=== PATIENT | male | born 1950 | race Two or more races ===

== ENCOUNTER 2016-08-06 05:20 | Inpatient (IN) | payer OTHER ==
[2016-08-05 10:15] VITALS: Ht 167.6 cm; Wt 106.6 kg
[2016-08-06] VITALS (29 sets, daily range): BP systolic 95–167; BP diastolic 56–81; PULSE 77–124; RESP 12–21
[~2016-08-06] VITALS: Ht 167.6 cm; Wt 106.6 kg
[2016-08-06] MEDS ORDERED: CLINDAMYCIN 600 MG/D5W (PMX) 50 ML IVPB SCH (07:00)
[2016-08-06] MEDS ORDERED: POLYMYXIN/BACITRACIN 1L IRRIG ONE (07:05)
[2016-08-06] MEDS ORDERED: ASPI-664 PO (07:17)
[2016-08-06] MEDS ORDERED: MELO-110 PO (07:17)
[2016-08-06] MEDS ORDERED: ATOR40TA68 PO (07:17)
[2016-08-06] MEDS ORDERED: AMLO1TAB86 PO (07:17)
[2016-08-06] MEDS ORDERED: RANI150T5 PO (07:17)
[2016-08-06] MEDS ORDERED: CLON-379 PO (07:17)
[2016-08-06] MEDS ORDERED: LORA10TA3 PO (07:17)
--- NOTE | 2016-08-06 07:49 | HPN ---
Date/Time of Note Date/Time of Note DATE: 08/06/16 TIME: 07:49 Interval H&P Admission Note Pt. seen H&P reviewed: No system changes DAVID ILRIANO DPM Aug 06, 2016 07:49
[2016-08-06] MEDS ORDERED: MIDAZOLAM 1 MG/ML 2 ML INJ ONE (07:58)
[2016-08-06] MEDS ORDERED: ROPIVACAINE 0.5 % 30 ML VIAL ONE (07:59)
[2016-08-06] MEDS ORDERED: ROCURONIUM 50 MG INJ ONE (08:20)
[2016-08-06] MEDS ORDERED: PROPOFOL 40 ML ONE (08:20)
[2016-08-06] MEDS ORDERED: LIDOCAINE 2% (SDV) 5 ML INJ ONE (08:20)
[2016-08-06] MEDS ORDERED: SUCCINYLCHOLINE CHLORIDE 100 MG/5 ML SYG IV ONE (08:20)
[2016-08-06] MEDS ORDERED: FENTAnyl 50 MCG/ML VIAL ONE (08:20)
[2016-08-06] MEDS ORDERED: EPHEDrine SULFATE 50 MG/5 ML SYG ONE (08:34)
[2016-08-06] MEDS ORDERED: ONDANSETRON 4 MG INJ ONE (08:35)
[2016-08-06] MEDS ORDERED: DEXAMETHASONE 4 MG/ML 1 ML INJ ONE (08:35)
[2016-08-06] MEDS ORDERED: FAMOTIDINE 20 MG INJ ONE (08:35)
[2016-08-06] MEDS ORDERED: METOCLOPRAMIDE 10 MG INJ ONE (08:38)
[2016-08-06] MEDS ORDERED: NEOSTIGMINE 3 MG/3 ML SYRINGE ONE (08:39)
[2016-08-06] MEDS ORDERED: GLYCOPYRROLATE 0.4 MG INJ ONE (08:39)
[2016-08-06] MEDS ORDERED: HYDROmorphONE 2 MG/ML SYG ONE (10:06)
[2016-08-06] MEDS ORDERED: LABETALOL HCL 20MG INJ ONE (10:23)
[2016-08-06] MEDS ORDERED: PROCHLORPERAZINE 10 MG INJ IV PRN (11:00)
[2016-08-06] MEDS ORDERED: ONDANSETRON 4 MG INJ IV PRN ×2 (11:00→17:00)
[2016-08-06] MEDS ORDERED: MEPERIDINE 25 MG INJ IV PRN (11:00)
[2016-08-06] MEDS ORDERED: FENTAnyl 50 MCG/ML VIAL IV PRN (11:00)
[2016-08-06] MEDS ORDERED: DIPHENHYDRAMINE 50 MG INJ IV PRN (11:00)
[2016-08-06] MEDS ORDERED: HYDROmorphONE (0.2 MG/ML) 10ML SYG IV PRN (11:00)
[2016-08-06] MEDS ORDERED: BUPIVACAINE 0.5% (SDV) 30 ML INJ ONE (12:04)
--- NOTE | 2016-08-06 12:42 | OPR ---
Date/Time of Note Date/Time of Note DATE: 08/06/16 TIME: 12:42 Operative Report Procedure Date: Aug 06, 2016 Preoperative Diagnosis Severe left ankle degenerative joint disease Status post previous ankle fracture Status post previous ORIF of left ankle Chronic pain of the left ankle Diabetes mellitus Peripheral neuropathy Moderate obesity Postoperative Diagnosis Severe left ankle degenerative joint disease Status post previous ankle fracture Status post previous ORIF of left ankle Chronic pain of the left ankle Diabetes mellitus Peripheral neuropathy Moderate obesity Operation Performed Left total ankle replacement Application of posterior splint left lower extremity Intraoperative use and interpretation of fluoroscopy Surgeon: DAVID LIRIANO DPM Anesthesia: general Estimated Blood Loss: 50 - 100 ml's Specimens Bone from the left ankle Complications: None Pt Condition Post Procedure: stable Disposition: PACU Indications This is a pleasant 65-year-old male patient who is been suffering with severe chronic left ankle pain for several years. He had sustained left ankle fracture many years ago and has undergone open reduction with internal fixation many years ago resulting in posttraumatic ankle arthritis and chronic pain on weightbearing and with activities. Patient has failed nonsurgical management including injections, pain management, narcotics, shoe gear change, activity modification etc. and seeks surgical management. Recommended procedure after full evaluation was total ankle replacement. Risks and complications of this type of surgery was discussed with patient in great detail risks and complications discussed include but are not limited to postoperative infection, postoperative pain, failure of surgery to correct the problem, implant failure, need for additional surgical procedures, need for removal of implant and fusion of the ankle joint using allograft bone, deep venous thrombosis, limb loss and loss of life. The patient understands the risks and complications discussed and agrees to procedure. Informed consent was obtained, signed and placed in the chart. No guarantee or warranty was given or implied as to the outcome of the procedure either in verbal or written form. Operative Findings The patient was seen and examined at the preoperative area. I discussed and counseled patient extensively on the procedure that were about to do. Patient understands the discussion and agrees to the procedure. Informed consent was signed, obtained and placed in the chart. The patient was then taken to the operating room and was placed on the operating table in the supine position. Anesthesiologist gave a popliteal block. All bony prominences were padded properly. A timeout was called by the circulating nurse. The patient was then placed under general anesthesia. A thigh tourniquet was applied to the left thigh. The left lower extremity was scrubbed, prepped and draped in the usual aseptic manner. Attention was directed to the left ankle. A midline incision was made over the anterior aspect of the left ankle and lower leg measuring 12 cm using a #10 blade. The incision was deepened through the subcutaneous layer with care being taken to identify and protect vital neurovascular structures. There was abnormal anatomy present with extensive scar tissue including the tibialis anterior which was going through the distal aspect of the bone, fibrosed into the distal tibia and out anteriorly. There was absolutely no excursion of the tendon and no movement at all. I was forced to transect the tendon in order to get access to the ankle joint. Next, careful dissection was made to the periosteal layer and using a schuster elevator I exposed the ankle joint and distal tibia along with the distal aspect of the talus. Severe degenerative changes noted along with multiple osteophytes. The ankle joint was dissected fully. Next, the [employer] cutting guide was applied to the distal tibia and guidewires were placed in. Next the cutting block was inserted and was verified under C arm. The distal tibia was then cut using a power saw. Next, the talar component was applied and guidewires were placed in. The cutting block was then laced for cutting the top of the talus according to the predetermined navigation of the [employer] system. Next, a power saw was used and the talar dome was cut. I proceeded to remove the bone that was cut from the ankle joint. Following complete removal of the bone was cut, I went ahead and inserted the drill block into the ankle joint. The jig was applied next and the plantar aspect of the heel was marked for an incision. A 1 cm incision was made of the plantar central aspect of the heel using a # 15 blade. Blunt dissection was made to the calcaneus. Next the trocar and the obturator were placed in and locked in place. A drill was inserted and packed drilling was done all the way through the calcaneus into the talus through the ankle joint and into the distal tibia with C arm guidance. Next, the reaming started with a #14 reamer followed by 16 and finally 18 for the base unit. I decided to to have a 4 component tibial side. Components were assembled on the back table. Once the reaming was finished using C-arm guidance, the wound was flushed with copious amounts of sterile normal saline. The 4 components were assembled with the first 2 inserted into the tibia followed by the third and finally the fourth. Tibial plate was then added and fixated in place. I checked the positioning of the tibial component under C-arm and was found to be similar to the preoperative plan. Next, I inserted talar dome and trial poly- in order to find the proper placement for the talar dome. This was verified under C-arm in both AP and lateral views and was found to be in accordance to the preoperative prophecy plan. Next, guidewires were inserted. The talus was then reamed. The talar component was then inserted and a mallet was used to place the talar component into the talus with the 3 prongs. Once the talar component was inserted, then a 10 mm Linnette was inserted as a final component for the ankle joint. The wound was flushed with copious amounts of sterile normal saline. There was some challenge getting of the components and because of the excessive amount of soft tissue scarring that was present from previous injury and previous surgery. I was able to get 10 of dorsiflexion on the table with the knee extended. Next, I started to close in layers using Vicryl suture for the anterior extensor retinaculum. The tibialis anterior was reapproximated to itself using 2-0 Ethibond suture. After the deep layers were closed, the subcutaneous layer was closed using 3-0 Vicryl and the skin was closed using cayetano. The pneumatic thigh tourniquet was deflated at 118 minutes and reinflated 25 minutes later and then deflated after the skin closure. Prompt hyperemic response was noted to digits of the left foot. Intraoperative AP and lateral views were obtained. The plantar heel incision was closed using 2-0 nylon simple suture technique. Sterile dressing was applied along with web roll and a posterior splint was applied to the left lower extremity. The plan was for anesthesia to add a saphenous block along with the popliteal block that was given earlier. The patient tolerated the procedure and anesthesia well. He was transferred to recovery room with vital signs stable and vascular status intact to the left lower extremity. Patient will be admitted for pain observation and management. I will be consulted. The hospitalist group will admit the patient primarily. Patient will be seen in house. Nonweightbearing is ordered for the left lower extremity. Postoperative orders were written. Patient has a good prognosis. I will follow the patient in-house. DAVID LIRIANO DPM Aug 06, 2016 12:42
[2016-08-06] MEDS ORDERED: LABETALOL HCL 20MG INJ IV PRN (14:00)
--- NOTE | 2016-08-06 14:38 | RADRPT ---
PROCEDURE: XR Left Ankle. CLINICAL INDICATION: Left ankle pain. TECHNIQUE: 3 views. Frontal, lateral, and oblique. COMPARISON: None. FINDINGS: There is a left ankle arthroplasty with components in the distal tibia and upper talus. Anterior sk in cayetano are noted. Bone detail is obscured by the overlying cast. There are old healed fractures of the distal shafts of the tibia and fibula with mild deformity. There is no new fracture or dislocation. There is no lytic or blastic lesion. IMPRESSION: 1. Postoperative changes of the left ankle arthroplasty. RPTAT: QQ .Khari Lindquist MD, MD Date Time Electronically viewed and signed by .Khari Lindquist MD, MD on 08/06/2016 14:38 .R/
--- NOTE | 2016-08-06 14:39 | RADRPT ---
PROCEDURE: Intraoperative imaging of the left ankle with fluoroscopy. CLINICAL INDICATION: Left ankle pain. Intraoperative. TECHNIQUE: 19 images of the left ankle were obtained in the operating room with an image intensifi er. No radiologist was in attendance. 77.8 seconds of fluoroscopy time was used. COMPARISON: No prior study is available for comparison. FINDINGS: Images demonstrate placement of a left ankle arthroplasty. IMPRESSION: 1. Intraoperative imaging of the left ankle. RPTAT: QQ .Khari Lindquist MD, MD Date Time Electronically viewed and signed by .Khari Lindquist MD, MD on 08/06/2016 14:38 .R/
--- NOTE | 2016-08-06 16:23 | CONS ---
Date/Time of Note Date/Time of Note DATE: 08/06/16 TIME: 16:14 Assessment/Plan Assessment/Plan Additional Assessment/Plan 65 yo male with 1. S/p Left total ankle replacement POD#[address] Trammell's recommendations Pain control PT when OK with Dr Trammell 2. Hypertension: resume home meds 3. Hyperlipidemia: resume statins 4. GERD: PPI Prophylaxis: SCDs and PPI Disposition: per Dr Trammell Consultation Date/Type/Reason Admit Date/Time Aug 06, 2016 at 05:20 Hx of Present Illness 65 yo male with Hypertension, Hyperlipidemia, GERD, also severe OA left ankle with pervious injury 17 yrs ago, who had elective left total ankle replacement today with Dr Trammell and being admitted for pain control, PT and post op monitoring Patient is stable currently, on RA and pain controlled so far and no complaints Constitutional: no complaints Respiratory: no complaints Cardiovascular: no complaints Genitourinary: no complaints Musculoskeletal: no complaints Skin: no complaints Neurologic: no complaints Past Medical History Medical History: GERD, high cholesterol, hypertension Past Surgical History Past Surgical Hx: appendectomy, other (previous ankle surgeries post trauma 17 yrs ago ) Social History Alcohol Use: none Smoking Status: Never smoker Exam/Review of Systems Vital Signs Vitals Vital Signs Date Time Temp Pulse Resp B/P Pulse Ox O2 Delivery O2 Flow Rate FiO2 08/06/16 16:03 99.1 101 18 134/71 93 08/06/16 15:17 Room Air 08/06/16 13:07 6.0 Intake and Output 08/05/16 08/05/16 08/06/16 15:00 23:00 07:00 Intake Total 2200 ml Balance 2200 ml Exam Constitutional: alert, obese, oriented, well developed Respiratory: clear to auscultation, normal air movement Cardiovascular: nl pulses, regular rate and rhythm Gastrointestinal: non-tender, soft Musculoskeletal: other (s/p left total ankle replacement) Extremities: normal pulses Neurological: REPRODUCTION PRODUCTION MANAGER II-XII intact, nl mental status, nl speech LANA WARREN Aug 06, 2016 16:23
[2016-08-06] MEDS ORDERED: OXYCODONE/ACETAMINOPHEN (10/325) TAB PO PRN (17:00)
[2016-08-06] MEDS ORDERED: BISACODYL 10 MG SUPP PR PRN (17:00)
[2016-08-06] MEDS ORDERED: NACL 0.9% 3 ML SYG IV SCH (17:00)
[2016-08-06] MEDS ORDERED: ACETAMINOPHEN 325 MG TAB PO PRN (17:00)
[2016-08-06] MEDS ORDERED: [UNRECOGNIZED DRUG - REMARK] XX SCH (17:00)
[2016-08-06] MEDS ORDERED: MAGNESIUM HYDROXIDE 30ML CUP PO PRN (17:00)
[2016-08-06] MEDS: DOCUSATE SODIUM 100 MG CAP PO SCH (17:58)
[2016-08-07] MEDS: DOCUSATE SODIUM 100 MG CAP PO SCH ×2 (05:33→16:58)
[2016-08-07] MEDS: PANTOPRAZOLE (EC) 40 MG TAB PO SCH (05:33)
[2016-08-07 06:54] LABS: CREATININE 0.86 mg/dl (0.61-1.24)
[2016-08-07 06:55] LABS: CALCIUM 8.8 mg/dl (8.4-10.2); MAGNESIUM 1.9 mg/dl (1.7-2.5); PHOSPHORUS 3.4 mg/dl (2.5-4.9)
[2016-08-07 08:10] VITALS: BP 146/73; RESP 18
[2016-08-07] MEDS: AMLODIPINE 10 MG TAB PO SCH (08:41)
[2016-08-07] MEDS: LOSARTAN 50 MG TAB PO SCH (08:42)
[2016-08-07] MEDS: LORATADINE 10 MG TAB PO SCH (08:42)
[2016-08-07] MEDS: ATORVASTATIN 40 MG TAB PO SCH (08:42)
[2016-08-07] MEDS: POLYETHYLENE GLYCOL 17 GM PACKET PO SCH (08:43)
[2016-08-07 09:17] LABS: BASOPHILS % 0.4 % (0.0-2.0); EOSINOPHILS % 0.1 % (0.0-7.0); HEMATOCRIT 34.2 % (42.0-52.0); LYMPHOCYTES # 2.3 10^3/ul (0.8-2.9); LYMPHOCYTES % 18.7 % (15.0-51.0); MEAN CORPUSCULAR HEMOGLOBIN 32.1 pg (29.0-33.0); MEAN CORPUSCULAR HGB CONC 35.1 g/dl (32.0-37.0); MEAN CORPUSCULAR VOLUME 91.6 fl (82.0-101.0); MEAN PLATELET VOLUME 7.7 fl (7.4-10.4); MONOCYTES % 8.5 % (0.0-11.0); NEUTROPHIL # 8.7 10^3/ul (1.6-7.5); NEUTROPHILS % 72.3 % (39.0-77.0); PLATELET COUNT 223 10^3/UL (140-440); RED BLOOD COUNT 3.74 10^6/ul (4.70-6.10); RED CELL DISTRIBUTION WIDTH 13.2 % (11.5-14.5); UNCORRECTED WBC 12.1 10^3/ul (4.8-10.8); WHITE BLOOD COUNT 12.1 10^3/ul (4.8-10.8)
[2016-08-07 09:20] LABS: CONDITION 1
--- NOTE | 2016-08-07 11:10 | PN ---
Date/Time of Note Date/Time of Note DATE: 08/07/16 TIME: 11:05 Assessment/Plan VTE Prophylaxis VTE Prophylaxis Intervention: SCD's Lines/Catheters IV Catheter Type (from Nrsg): Saline Lock Urinary Cath still in place: No Assessment/Plan Assessment/Plan 65 yo male with 1. S/p Left total ankle replacement POD#[address] Trammell's recommendations today and patient to have dressing change today Pain control with po meds PT with non weight beating LLE if OK with Dr Trammell 2. Hypertension: resume home meds 3. Hyperlipidemia: resume statins 4. GERD: PPI Prophylaxis: SCDs and PPI Disposition: per Dr Trammell Subjective 24 Hr Interval Summary Free Text/Dictation Patient doing well on POD#1 No complaints as pain controlled for now Awaiting surgical follow up today Exam/Review of Systems Vital Signs Vitals Vital Signs Date Time Temp Pulse Resp B/P Pulse Ox O2 Delivery O2 Flow Rate FiO2 08/07/16 08:10 98.1 93 18 146/73 94 08/06/16 15:17 Room Air 08/06/16 13:07 6.0 Intake and Output 08/06/16 08/06/16 08/07/16 15:00 23:00 07:00 Intake Total 360 ml Output Total 100 ml 150 ml Balance -100 ml 210 ml Exam Constitutional: alert, oriented, well developed Respiratory: clear to auscultation, normal air movement Cardiovascular: nl pulses, regular rate and rhythm Gastrointestinal: non-tender, soft Musculoskeletal: other (LLE with dressing ) Extremities: normal pulses Neurological: COCOA ROOM OPERATOR II-XII intact, nl mental status, nl speech Results Result Diagram: 08/07/16 0602 08/07/16 0602 Results 24 hrs Laboratory Tests Test 08/07/16 06:02 Anion Gap 15 Basophils # 0.0 Basophils % 0.4 Blood Urea Nitrogen 18 Calcium Level 8.8 Carbon Dioxide Level 27 Chloride Level 102 Creatinine 0.86 Eosinophils # 0.0 Eosinophils % 0.1 Glucose Level 138 Hematocrit 34.2 L Hemoglobin 12.0 L Hemoglobin A1c 6.5 H Lymphocytes # 2.3 Lymphocytes % 18.7 Magnesium Level 1.9 Mean Corpuscular Hemoglobin 32.1 Mean Corpuscular Hemoglobin Concent 35.1 Mean Corpuscular Volume 91.6 Mean Platelet Volume 7.7 Monocytes # 1.0 H Monocytes % 8.5 Neutrophils # 8.7 H Neutrophils % 72.3 Nucleated Red Blood Cells # 0.0 Nucleated Red Blood Cells % 0.0 Phosphorus Level 3.4 Platelet Count 223 Potassium Level 4.0 Red Blood Count 3.74 L Red Cell Distribution Width 13.2 Sodium Level 140 White Blood Count 12.1 H Medications Medications Current Medications Atorvastatin Calcium (Lipitor) 40 mg DAILY PO Last administered on 08/07/16 08 :42; Admin Dose 40 MG; Start 08/07/16 at 09:00 Clonidine (Catapres) 0.1 mg Q8 PRN PO sbp above 160; Start 08/06/16 at 16:30 Loratadine (Claritin) 10 mg DAILY PO Last administered on 08/07/16 08:42; Admin Dose 10 MG; Start 08/07/16 at 09:00 Amlodipine Besylate (Norvasc) 10 mg DAILY PO Last administered on 08/07/16 08: 41; Admin Dose 10 MG; Start 08/07/16 at 09:00 Pantoprazole (Protonix Tab) 40 mg DAILY@06 PO Last administered on 08/07/16 05 :33; Admin Dose 40 MG; Start 08/07/16 at 06:00 Ondansetron HCl (Zofran Inj) 4 mg Q6H PRN IV NAUSEA AND/OR VOMITING; Start at 17:00 Acetaminophen (Tylenol Tab) 650 mg Q6H PRN PO PAIN LEVEL 1-3 OR FEVER; Start at 17:00 Hydromorphone HCl (Dilaudid) 0.5 mg Q4H PRN IV SEVERE PAIN LEVEL 7-10; Start at 17:00 Docusate Sodium (Colace) 100 mg Q12H PO Last administered on 08/07/16 05:33; Admin Dose 100 MG; Start 08/06/16 at 17:00 Magnesium Hydroxide (Milk Of Mag) 30 ml DAILY PRN PO CONSTIPATION; Start at 17:00 Bisacodyl (Dulcolax Supp) 10 mg DAILY PRN [place] CONSTIPATION; Start 08/06/16 at 17 :00 Oxycodone/ Acetaminophen (Endocet (10/ 325)) 1 tab Q4H PRN PO PAIN; Start 08/06 at 17:00 Oxycodone/ Acetaminophen (Endocet (10/ 325)) 2 tab Q4H PRN PO PAIN; Start 08/06 at 17:00 Polyethylene Glycol (Miralax) 17 gm DAILY PO Last administered on 08/07/16 08: 43; Admin Dose 17 GM; Start 08/07/16 at 09:00 Losartan Potassium (Cozaar) 100 mg DAILY PO Last administered on 08/07/16 08: 42; Admin Dose 100 MG; Start 08/07/16 at 09:00 LANA WARREN Aug 07, 2016 11:10
[2016-08-07] MEDS: HYDROmorphONE 1 MG/ML SYG IV PRN ×2 (14:25→21:45)
[2016-08-07] MEDS: OXYCODONE/ACETAMINOPHEN (10/325) TAB PO PRN ×2 (18:47→23:53)
[2016-08-07 19:23] VITALS: BP 130/60; RESP 20
[2016-08-07] MEDS ORDERED: DEXTROSE 50% 50 ML SYRINGE IV PRN ×2 (20:30)
[2016-08-07] MEDS ORDERED: GLUCOSE GEL 15 GRAM TUBE PO PRN ×2 (20:30)
[2016-08-07] MEDS ORDERED: GLUCOSE GEL 15 GRAM TUBE BUCCAL PRN (20:30)
[2016-08-07] MEDS ORDERED: GLUCAGON 1 MG INJ IM PRN (20:30)
[2016-08-08] MEDS: OXYCODONE/ACETAMINOPHEN (10/325) TAB PO PRN ×2 (04:06→08:58)
[2016-08-08] MEDS: DOCUSATE SODIUM 100 MG CAP PO SCH (05:50)
[2016-08-08] MEDS: PANTOPRAZOLE (EC) 40 MG TAB PO SCH (05:50)
[2016-08-08 07:26] VITALS: BP 153/74; RESP 22
[2016-08-08] MEDS ORDERED: metFORMIN (XR) 500 MG TAB PO SCH (08:05)
[2016-08-08] MEDS: ATORVASTATIN 40 MG TAB PO SCH (08:52)
[2016-08-08] MEDS: LOSARTAN 50 MG TAB PO SCH (08:52)
[2016-08-08] MEDS: LORATADINE 10 MG TAB PO SCH (08:52)
[2016-08-08] MEDS: POLYETHYLENE GLYCOL 17 GM PACKET PO SCH (08:53)
[2016-08-08] MEDS: AMLODIPINE 10 MG TAB PO SCH (08:53)
--- NOTE | 2016-08-08 11:19 | PN ---
Date/Time of Note Date/Time of Note DATE: 08/08/16 TIME: 11:17 Assessment/Plan VTE Prophylaxis VTE Prophylaxis Intervention: SCD's Lines/Catheters IV Catheter Type (from Nrsg): Saline Lock Urinary Cath still in place: No Assessment/Plan Assessment/Plan 65 yo male with 1. S/p Left total ankle replacement POD#[address] Trammell's recommendations today for discharge home Pain control with po meds PT with non weight beating LLE , HHPT/FWW/Commode/Wheelchair being arranged for through [facility] 2. Hypertension: Continue home meds 3. Hyperlipidemia: Continue statins 4. GERD: PPI 5. Slight hyperglycemia at home with A1c of 6.5: diet control and weight loss per patient choice and declining meds for now Prophylaxis: SCDs and PPI Disposition: if Dr Trammell agreeable, d/c home today with HHPT Subjective 24 Hr Interval Summary Free Text/Dictation Patient doing well and medically stable for discharge if OK with Podiatry Reports he was told he had slightly elevated BG as outpatient does not want meds but diet control and weight loss Exam/Review of Systems Vital Signs Vitals Vital Signs Date Time Temp Pulse Resp B/P Pulse Ox O2 Delivery O2 Flow Rate FiO2 08/08/16 07:26 97.7 97 22 153/74 95 08/06/16 15:17 Room Air 08/06/16 13:07 6.0 Intake and Output 08/07/16 08/07/16 08/08/16 15:00 23:00 07:00 Intake Total 1280 ml 700 ml Output Total 250 ml 500 ml Balance 1030 ml 200 ml Exam Constitutional: alert, oriented, other (non weight bearing LLE ), well developed Respiratory: clear to auscultation, normal air movement Cardiovascular: nl pulses, regular rate and rhythm Gastrointestinal: non-tender, soft Musculoskeletal: nl extremities to inspection Extremities: normal pulses Neurological: STORM SASH MAKER II-XII intact, nl mental status, nl speech, nl strength Results Result Diagram: 08/07/1660108/07/16601 Medications Medications Current Medications Atorvastatin Calcium (Lipitor) 40 mg DAILY PO Last administered on 08/08/16t 08 :52; Admin Dose 40 MG; Start 08/07/16 at 09:00 Clonidine (Catapres) 0.1 mg Q8 PRN PO sbp above 160; Start 08/06/16 at 16:30 Loratadine (Claritin) 10 mg DAILY PO Last administered on 08/08/16 08:52; Admin Dose 10 MG; Start 08/07/16 at 09:00 Amlodipine Besylate (Norvasc) 10 mg DAILY PO Last administered on 08/08/16 08: 53; Admin Dose 10 MG; Start 08/07/16 at 09:00 Pantoprazole (Protonix Tab) 40 mg DAILY@06 PO Last administered on 08/08/16 05 :50; Admin Dose 40 MG; Start 08/07/16 at 06:00 Ondansetron HCl (Zofran Inj) 4 mg Q6H PRN IV NAUSEA AND/OR VOMITING; Start at 17:00 Acetaminophen (Tylenol Tab) 650 mg Q6H PRN PO PAIN LEVEL 1-3 OR FEVER; Start at 17:00 Hydromorphone HCl (Dilaudid) 0.5 mg Q4H PRN IV SEVERE PAIN LEVEL 7-10 Last administered on 08/07/16 21:45; Admin Dose 0.5 MG; Start 08/06/16 at 17:00 Docusate Sodium (Colace) 100 mg Q12H PO Last administered on 08/08/16 05:50; Admin Dose 100 MG; Start 08/06/16 at 17:00 Magnesium Hydroxide (Milk Of Mag) 30 ml DAILY PRN PO CONSTIPATION; Start at 17:00 Bisacodyl (Dulcolax Supp) 10 mg DAILY PRN [place] CONSTIPATION; Start 08/06/16 at 17 :00 Oxycodone/ Acetaminophen (Endocet (10/ 325)) 1 tab Q4H PRN PO PAIN; Start 08/06 at 17:00 Oxycodone/ Acetaminophen (Endocet (10/ 325)) 2 tab Q4H PRN PO PAIN Last administered on 08/08/16 08:58; Admin Dose 2 TAB; Start 08/06/16 at 17:00 Polyethylene Glycol (Miralax) 17 gm DAILY PO Last administered on 08/08/16 08: 53; Admin Dose 17 GM; Start 08/07/16 at 09:00 Losartan Potassium (Cozaar) 100 mg DAILY PO Last administered on 2/23/17at 08: 52; Admin Dose 100 MG; Start 08/07/16 at 09:00 Miscellaneous Information 1 ea NOTE XX ; Start 08/07/16 at 20:30 Glucose (Glutose) 15 gm Q15M PRN PO DECREASED GLUCOSE; Start 08/07/16 at 20:30 Glucose (Glutose) 22.5 gm Q15M PRN PO DECREASED GLUCOSE; Start 08/07/16 at 20: 30 Dextrose (D50w Syringe) 25 ml Q15M PRN IV DECREASED GLUCOSE; Start 08/07/16 at 20:30 Dextrose (D50w Syringe) 50 ml Q15M PRN IV DECREASED GLUCOSE; Start 08/07/16 at 20:30 Glucagon (Glucagen) 1 mg Q15M PRN IM DECREASED GLUCOSE; Start 08/07/16 at 20:30 Glucose (Glutose) 15 gm Q15M PRN BUCCAL DECREASED GLUCOSE; Start 08/07/16 at 20 :30 LANA WARREN Aug 08, 2016 11:19
--- NOTE | 2016-08-08 11:20 | PDOCDIS ---
Discharge Instructions CONDITION Patient Condition: Good HOME CARE INSTRUCTIONS: Special Diet: ADA diet ACTIVITY: Activity Restrictions: No Weight Bearing (LLE) FOLLOW UP/APPOINTMENTS Appointments Follow up with Dr Trammell within 1 week Follow up with PCP within 1 to 2 weeks Home health PT LANA WARREN Aug 08, 2016 11:20
[2016-08-08] MEDS ORDERED: OXYC-431 PO (11:39)
[2016-08-08] MEDS ORDERED: DOCU-216 PO (11:42)
[2016-08-08] MEDS: HYDROmorphONE 1 MG/ML SYG IV PRN (11:46)
--- NOTE | 2016-08-08 13:16 | PN ---
Date/Time of Note Date/Time of Note DATE: 08/08/16 TIME: 13:12 Assessment/Plan Lines/Catheters IV Catheter Type (from Nrsg): Saline Lock Duran in Place (from Nrsg): No Assessment/Plan Problems: (1) H/O total ankle replacement (2) Postop check Assessment/Plan S/P left total ankle replacement; doing well; pain well controlled; remain non weight bearing left foot; follow up in one week in the office. Keep bandages clean, dry and intact. Exam/Review of Systems Vital Signs Vitals Vital Signs Date Time Temp Pulse Resp B/P Pulse Ox O2 Delivery O2 Flow Rate FiO2 08/08/16 08:15 Nasal Cannula 2.0 08/08/16 07:26 97.7 97 22 153/74 95 Intake and Output 08/07/16 08/07/16 08/08/16 15:00 23:00 07:00 Intake Total 1280 ml 700 ml Output Total 250 ml 500 ml Balance 1030 ml 200 ml Results Result Diagram: 08/07/16 0602 08/07/16 0602 DAVID LIRIANO DPM Aug 08, 2016 13:15
--- NOTE | 2016-08-09 03:03 | DS ---
DATE OF ADMISSION: 08/06/2016 DATE OF DISCHARGE: 08/08/2016 ADMITTING PHYSICIAN: Dr. Trammell. PRIMARY CARE PHYSICIAN: Dr. Jean and Dr. Trammell. CONSULTANTS DURING THIS ADMISSION: Dr. Trammell. CHIEF COMPLAINT ON ADMISSION: Elective left ankle total replacement. BRIEF HISTORY OF PRESENT ILLNESS: This is a 65-year-old male with history of hypertension, hyperlip idemia, gastroesophageal reflux disease, severe osteoarthritis of the left ankle with a previous inj ury 17 years ago, who was brought in for elective left total ankle replacement with Dr. Trammell. Pos toperatively, the patient was doing well. He was admitted to a medical/surgical bed. HOSPITAL COURSE: The patient was admitted to a medical/surgical bed. He was started PT. He is non weightbearing to the left lower extremity. He had trauma to the right ankle also. Therefore, his a mbulation is limited. He requires a walker for short distances, wheelchair for community mobility. His pain is controlled with Percocet and he is otherwise doing well. He was therefore discharged h [facility] on postoperative day #2 with home health for physical therapy, multiple equipment for home inclu ding a front-wheel walker, commode, wheelchair, and home health PT. DISPOSITION: Discharge home with home health PT. DISCHARGE CONDITION: Stable. DISCHARGE DIET: Carbohydrate controlled diet. DISCHARGE ACTIVITY: Nonweightbearing left lower extremity. DISCHARGE DIAGNOSES: 1. Status post left total ankle replacement. 2. Hypertension. 3. Hyperlipidemia. 4. Gastroesophageal reflux disease. 5. Slight hyperglycemia with hemoglobin A1c of 6.5. DISCHARGE MEDICATIONS: 1. Colace 100 mg p.o. q.12 hours. 2. Percocet 1 tab p.o. q. 6 hours p.r.n. pain. 3. Norvasc/olmesartan 10/20 one tab p.o. daily. 4. Aspirin 81 mg p.o. daily. 5. Atorvastatin 40 mg p.o. daily. 6. Clonidine 0.1 mg p.o. q.8 hours p.r.n. elevated blood pressure. 7. Loratadine 10 mg p.o. daily. 8. Meloxicam 15 mg p.o. daily. 9. Ranitidine 150 mg p.o. daily. The patient is advised to be on a carbohydrate controlled diet given his slightly elevated blood pre ssures. Dictated By: LANA ALEXIS/DES Conf#: [id number] DID#: [id number]
== END 2016-08-08 15:30 | disposition home health service (06) | DRG 470 ==
LOC: REC 05:20 → EDSTATUS 07:30 → MS2 15:55
PROVIDERS: ADMIT Podiatrist Foot & Ankle Surgery; ATTEND Podiatrist Foot & Ankle Surgery
PROC: 0SRG0JA Replacement of Left Ankle Joint with Synthetic Substitute, Uncemented, Open Approach (ICD-10-PCS; principal; 2016-08-06 07:30)
DX: M19.172 Post-traumatic osteoarthritis, left ankle and foot (principal); G62.9 Polyneuropathy, unspecified; I10 Essential (primary) hypertension; E66.9 Obesity, unspecified; Z68.37 Body mass index [BMI] 37.0-37.9, adult; E11.9 Type 2 diabetes mellitus without complications; G89.29 Other chronic pain; E78.5 Hyperlipidemia, unspecified
CPT/HCPCS: 73610; 80048; 83036; 83735; 84100; 85025; 87070; 88304; 88311; 97116; 97162; 97530; C1776; J0330; J1100; J1170; J2250; J2405; J2710; J2765; J2795; J3010

== ENCOUNTER 2016-08-13 14:36 | Inpatient (IN) | payer OTHER ==
[~2016-08-13] VITALS: Ht 167.6 cm; Wt 109.0 kg
[~2016-08-13 14:36] MED LIST: AMLO1TAB86 PO; ASPI-664 PO; ATOR40TA68 PO; CLON-379 PO; DOCU-216 PO; LORA10TA3 PO; MELO-110 PO; OXYC-431 PO; RANI150T5 PO
--- NOTE | 2016-08-13 17:01 | ERA ---
ER Documentation Chief Complaint Date/Time DATE: 08/13/16 TIME: 17:00 Chief Complaint L FOOT WOUND FROM SURGERY 7 DAYS AGO. SENT BY REEL ASSEMBLER R/O CELLULITIS HPI The patient is a 65-year-old male, presenting to the ER because of left foot redness and pain intermittently for the last couple days. He was seen by cold work operator Dr. Mack who performed the left ankle replacement about a week ago who sent him to the ER for admission. He denies fever, chills, neck pain, chest pain, dyspnea, abdominal pain, vomiting, dysuria, diarrhea, constipation. He does not smoke or drink Past medical history: Hypertension, dyslipidemia, GERD Past surgical history: Right foot arthroscopy ROS All systems reviewed and are negative except as per history of present illness. Medications Home Meds Active Scripts Docusate Sodium (Dok) 100 Mg Capsule, 100 MG PO Q12H, #60 CAP Prov:LANA WARREN 08/08/16 Oxycodone HCl/Acetaminophen (Oxycodone-Acetaminophen 10-325) 1 Each Tablet, 1 TAB PO Q6 Y for PAIN, #90 TAB Prov:BRIANALANA 08/08/16 Reported Medications Clonidine Hcl* (Clonidine Hcl*) 0.1 Mg Tab, 0.1 MG PO Q8 Y for ELEVATED BLOOD PRESSURE, TAB 08/06/16 Ranitidine Hcl* (Ranitidine Hcl*) 150 Mg Tablet, 150 MG PO DAILY, #30 TAB 08/06/16 Meloxicam* (Mobic*) 15 Mg Tablet, 15 MG PO DAILY, #30 08/06/16 Loratadine* (Loratadine*) 10 Mg Tablet, 1 TAB PO DAILY, #30 08/06/16 Aspirin* (Aspirin* EC) 81 Mg Tablet., 1 TAB PO DAILY, #30 08/06/16 Atorvastatin* (Atorvastatin*) 40 Mg Tablet, 1 TAB PO DAILY, #30 08/06/16 Amlodipine Bes/Olmesartan Med (Janet 10-20 mg Tablet) 1 Each Tablet, 1 TAB PO DAILY, #30 08/06/16 Allergies Allergies: Coded Allergies: Penicillins (Verified Allergy, Unknown, 08/13/16) PMhx/Soc History of Surgery: Yes (RT FINGER,LT LEG,RT FOOT) Anesthesia Reaction: No Hx Neurological Disorder: No Hx Respiratory Disorders: No Hx Cardiac Disorders: Yes (HTN ,HIGH CHOLESTEROL) Hx Psychiatric Problems: No Hx Miscellaneous Medical Probl: Yes (see notes) Hx Alcohol Use: No Hx Substance Use: No Hx Tobacco Use: No Physical Exam Vitals Vital Signs Date Time Temp Pulse Resp B/P Pulse Ox O2 Delivery O2 Flow Rate FiO2 08/13/16 19:09 98.1 84 20 140/74 99 Room Air 08/13/16 14:55 97.5 90 20 118/72 97 Physical Exam Const: No acute distress. Head: Atraumatic. Eyes: Normal Conjunctiva. ENT: Normal External Ears, Nose and Mouth. Neck: Full range of motion. No meningismus. Resp: Clear to auscultation bilaterally. Cardio: Regular rate and rhythm, no murmurs. Abd: Soft, non distended, normal bowel sounds, non tender. Skin: No petechiae or rashes. Back: No midline or flank tenderness. Ext: Left ankle is with a large incision that is erythematous and tender and warm to touch, no discharge, no calf tenderness Neur: Awake and alert. No focal deficit Psych: Normal Mood and Affect. Result Diagram: 08/13/16 1700 08/13/16 1700 Results 24 hrs Laboratory Tests Test 08/13/16 17:00 Activated Partial Thromboplast Time 31.9Sec Anion Gap 13 Basophils # 0.010^3/ul Basophils % 0.3% Blood Urea Nitrogen 14mg/dl Calcium Level 8.3mg/dl Carbon Dioxide Level 21mmol/L Chloride Level 95mmol/L Creatinine 0.83mg/dl Eosinophils # 0.110^3/ul Eosinophils % 0.6% Glucose Level 284mg/dl Hematocrit 33.5% Hemoglobin 11.4g/dl INR International Normalized Ratio 1.14 Lymphocytes # 1.310^3/ul Lymphocytes % 11.3% Mean Corpuscular Hemoglobin 29.9pg Mean Corpuscular Hemoglobin Concent 34.0g/dl Mean Corpuscular Volume 87.9fl Mean Platelet Volume 9.8fl Monocytes # 0.710^3/ul Monocytes % 5.8% Neutrophils # 9.110^3/ul Neutrophils % 81.4% Nucleated Red Blood Cells # 0.010^3/ul Nucleated Red Blood Cells % 0.0/100WBC Platelet Count 71216^3/UL Potassium Level 2.9mmol/L Prothrombin Time 14.6Sec Prothrombin Time Ratio 1.1 Red Blood Count 3.8110^6/ul Red Cell Distribution Width 14.4% Sodium Level 126mmol/L White Blood Count 11.210^3/ul Current Medications Medications (Trade) Dose Ordered Sig/Luca Route PRN Reason Start Time Stop Time Status Last Admin Dose Admin Vancomycin HCl 250 ml @ 125 mls/hr ONCE IVPB 08/13/16 19:00 08/13/16 20:59 Levofloxacin/ Dextrose 150 ml @ 100 mls/hr ONCE ONCE IVPB 08/13/16 19:00 08/13/16 20:29 08/13/16 19:46 Potassium Chloride/Sodium Chloride (KCl/NS) 110 ml @ 55 mls/hr ONCE ONCE IVPB 08/13/16 19:00 08/13/16 20:59 08/13/16 19:46 Potassium Chloride (Klor-Con 20) 40 meq ONCE STAT PO 08/13/16 18:37 08/13/16 18:42 DC 08/13/16 19:46 Procedures/MDM [place] [id number] Radiology Main Line: [phone] DIAGNOSTIC IMAGING REPORT Patient: SRIDHAR SANCHEZ : 1950 Age: 65 Sex: M MR #: [id number] DOS: 08/13/16 1708 Ordering MD: CHIKIS PARKER MD Location: E/R Room/Bed: PROCEDURE: XR Ankle. CLINICAL INDICATION: Status post surgery and possible infection. TECHNIQUE: Three views of the left ankle were performed. COMPARISON: 08/06/2016 FINDINGS: The cast has been removed. Anterior surgical cayetano are again noted. There is presence of a tibiotalar joint prosthesis in near anatomic alignment. There is extensive post fracture deformity of the distal tibia with a bridging at the proximal syndesmosis and a healed post fracture deformity of the distal fibula. Multiple lucencies are noted about the distal tibia, some of which are related to prior hardware. IMPRESSION: 1. Status post tibiotalar joint arthroplasty with unchanged alignment. 2. Interval removal of the overlying cast. 3. Nonspecific subcutaneous lucencies are present. RPTAT: PP .Clark Roberts MD, MD Date Time Electronically viewed and signed by .Clark Roberts MD, on 08/13/2016 17:52 .d/ CC: CHIKIS PARKER MD MEDICAL MAKING DECISION: The patient is a 75-year-old male, presenting with acute left ankle cellulitis, status post left ankle replacement a week ago, acute hypokalemia, acute hyponatremia. He was treated with vancomycin IV, Zosyn IV, potassium chloride 40 mEq p.o. and 20 mEq IV. The differential diagnoses considered include but are not limited to cellulitis, abscess, infected hardware, DVT Departure Diagnosis: Primary Impression: Cellulitis of left ankle Additional Impressions: Hypokalemia Hyponatremia Anemia Condition: Stable Comments I discussed the findings with the patient. I discussed the patient with his physician Dr. Warren who was made aware of the lab, the treatment, the patient condition. The patient is admitted to medical surgery bed at 6:50 PM CHIKIS PARKER MD Aug 13, 2016 17:00
[2016-08-13 17:38] LABS: ADD SCAN DIFF NO
[2016-08-13 17:40] LABS: BASOPHILS % 0.3 % (0.0-2.0); EOSINOPHILS # 0.1 10^3/ul (0.0-0.5); EOSINOPHILS % 0.6 % (0.0-7.0); HEMATOCRIT 33.5 % (42.0-52.0); HEMOGLOBIN 11.4 g/dl (14.0-18.0); LYMPHOCYTES # 1.3 10^3/ul (0.8-2.9); LYMPHOCYTES % 11.3 % (15.0-51.0); MEAN CORPUSCULAR HEMOGLOBIN 29.9 pg (29.0-33.0); MEAN CORPUSCULAR VOLUME 87.9 fl (82.0-101.0); MEAN PLATELET VOLUME 9.8 fl (7.4-10.4); MONOCYTE # 0.7 10^3/ul (0.3-0.9); MONOCYTES % 5.8 % (0.0-11.0); NEUTROPHIL # 9.1 10^3/ul (1.6-7.5); NEUTROPHILS % 81.4 % (39.0-77.0); PLATELET COUNT 334 10^3/UL (140-415); RED BLOOD COUNT 3.81 10^6/ul (4.70-6.10); RED CELL DISTRIBUTION WIDTH 14.4 % (11.5-14.5); WHITE BLOOD COUNT 11.2 10^3/ul (4.8-10.8)
[2016-08-13 17:50] LABS: INR 1.14; PROTIME 14.6 Sec (12.2-14.2); PT RATIO 1.1
[2016-08-13 17:51] LABS: PARTIAL THROMBOPLASTIN TIME 31.9 Sec (25.0-35.0)
--- NOTE | 2016-08-13 17:52 | RADRPT ---
PROCEDURE: XR Ankle. CLINICAL INDICATION: Status post surgery and possible infection. TECHNIQUE: Three views of the left ankle were performed. COMPARISON: 08/06/2016 FINDINGS: The cast has been removed. Anterior surgical cayetano are again noted. There is presence of a tibio talar joint prosthesis in near anatomic alignment. There is extensive post fracture deformity of th e distal tibia with a bridging at the proximal syndesmosis and a healed post fracture deformity of t he distal fibula. Multiple lucencies are noted about the distal tibia, some of which are related to prior hardware. IMPRESSION: 1. Status post tibiotalar joint arthroplasty with unchanged alignment. 2. Interval removal of the overlying cast. 3. Nonspecific subcutaneous lucencies are present. RPTAT: PP .Clark Roberts MD, Date Time Electronically viewed and signed by .Clark Roberts MD, on 08/13/2016 17:52 .d/
[2016-08-13 17:53] LABS: CREATININE 0.83 mg/dl (0.61-1.24)
[2016-08-13 17:54] LABS: CALCIUM 8.3 mg/dl (8.4-10.2)
[2016-08-13 18:13] LABS: POTASSIUM 2.9 mmol/L (3.5-5.1)
[2016-08-13] MEDS ORDERED: POTASSIUM CHLORIDE (SR) 20 MEQ TAB PO STA (18:37)
[2016-08-13] MEDS ORDERED: POTASSIUM CHLORIDE 20 MEQ in SOD CHLORIDE 0.9% 100 ML IVPB ONE (19:00)
[2016-08-13] MEDS ORDERED: VANCOMYCIN 1 GM (PMX) 250 ML IVPB SCH (19:00)
[2016-08-13] MEDS ORDERED: LEVOFLOXACIN 750MG/D5W (PMX) 150 ML IVPB ONE (19:00)
[2016-08-13 21:55] VITALS: TEMP 98.1
[2016-08-13 22:30] VITALS: BP 146/78; RESP 18
[2016-08-13 22:45] VITALS: Ht 167.6 cm; Wt 109.0 kg
[2016-08-13] MEDS ORDERED: ONDANSETRON 4 MG INJ IV PRN (23:30)
[2016-08-13] MEDS ORDERED: VANCOMYCIN IV PER PHARMACY XX SCH (23:30)
[2016-08-13] MEDS ORDERED: NACL 0.9% 3 ML SYG IV SCH (23:30)
[2016-08-13] MEDS ORDERED: ACETAMINOPHEN 325 MG TAB PO PRN (23:30)
[2016-08-13] MEDS ORDERED: BISACODYL 10 MG SUPP PR PRN (23:30)
[2016-08-13] MEDS ORDERED: MAGNESIUM HYDROXIDE 30ML CUP PO PRN (23:30)
[2016-08-14] MEDS ORDERED: VANCOMYCIN 1 GM in NS 250 ML IVPB ONE (01:00)
[2016-08-14] MEDS: ACCUCHECK XX SCH (02:00)
[2016-08-14] MEDS: morphine 2 MG INJ IV PRN ×2 (03:37→20:59)
[2016-08-14 05:45] LABS: ADD SCAN DIFF NO
[2016-08-14 06:03] LABS: BASOPHIL # 0.1 10^3/ul (0.0-0.1); BASOPHILS % 0.9 % (0.0-2.0); EOSINOPHILS # 0.2 10^3/ul (0.0-0.5); EOSINOPHILS % 2.7 % (0.0-7.0); HEMATOCRIT 34.3 % (42.0-52.0); HEMOGLOBIN 11.6 g/dl (14.0-18.0); LYMPHOCYTES # 1.9 10^3/ul (0.8-2.9); LYMPHOCYTES % 24.1 % (15.0-51.0); MEAN CORPUSCULAR HEMOGLOBIN 30.9 pg (29.0-33.0); MEAN CORPUSCULAR HGB CONC 33.8 g/dl (32.0-37.0); MEAN CORPUSCULAR VOLUME 91.2 fl (82.0-101.0); MEAN PLATELET VOLUME 9.2 fl (7.4-10.4); MONOCYTE # 0.8 10^3/ul (0.3-0.9); NEUTROPHIL # 4.9 10^3/ul (1.6-7.5); NEUTROPHILS % 61.7 % (39.0-77.0); PLATELET COUNT 286 10^3/UL (140-415); RED BLOOD COUNT 3.76 10^6/ul (4.70-6.10); RED CELL DISTRIBUTION WIDTH 12.5 % (11.5-14.5)
[2016-08-14 06:14] LABS: POTASSIUM 4.1 mmol/L (3.5-5.1)
[2016-08-14 06:16] LABS: CREATININE 0.72 mg/dl (0.61-1.24)
[2016-08-14 06:17] LABS: MAGNESIUM 1.8 mg/dl (1.7-2.5); PHOSPHORUS 3.5 mg/dl (2.5-4.9)
[2016-08-14] MEDS: INSULIN ASPART [NOVOLOG] 3 ML PEN SC SCH ×4 (08:00→21:00)
--- NOTE | 2016-08-14 08:05 | RADRPT ---
PROCEDURE: US DVT. CLINICAL INDICATION: Evaluate left lower extremity for deep venous thrombosis. TECHNIQUE: Multiple longitudinal and transverse images of the left lower extremity veins were obta ined with farias scale and color Doppler imaging. 2D grayscale measurements with compression, color D oppler flow, and augmentation was performed. The calf veins were interrogated as well. COMPARISON: No prior studies are available for comparison. FINDINGS: The left common femoral, superficial femoral and popliteal veins are normally compressible throughou t. Color flow demonstrates normal filling of the vessel. Normal waveforms are visualized and there is normal response to augmentation. The calf veins are visualized and are equally unremarkable. IMPRESSION: 1. No evidence of a deep vein thrombosis involving the left lower extremity. RPTAT: [facility] Physician Cong Date Time Electronically viewed and signed by Physician Cong on 08/14/2016 08:05 /
[2016-08-14] MEDS: LORATADINE 10 MG TAB PO SCH (08:34)
[2016-08-14] MEDS: ATORVASTATIN 40 MG TAB PO SCH (08:34)
[2016-08-14] MEDS: ASPIRIN (EC) 81 MG TAB PO SCH (08:34)
[2016-08-14] MEDS: FAMOTIDINE 20 MG TAB PO SCH ×2 (08:34→20:54)
[2016-08-14 08:35] VITALS: BP 150/78; RESP 18
[2016-08-14] MEDS: ENOXAPARIN 40 MG/0.4 ML SYG SC SCH (08:38)
[2016-08-14] MEDS ORDERED: AMLODIPINE 10 MG TAB PO SCH (10:00)
[2016-08-14] MEDS: LOSARTAN 50 MG TAB PO SCH (10:07)
[2016-08-14] MEDS: VANCOMYCIN 1.25 GM in SOD CHLORIDE 0.9% 250 ML IVPB SCH ×2 (10:07→21:55)
[2016-08-14] MEDS ORDERED: DEXTROSE 50% 50 ML SYRINGE IV PRN ×2 (11:00)
[2016-08-14] MEDS ORDERED: GLUCOSE GEL 15 GRAM TUBE PO PRN ×2 (11:00)
[2016-08-14] MEDS ORDERED: GLUCAGON 1 MG INJ IM PRN (11:00)
[2016-08-14] MEDS ORDERED: GLUCOSE GEL 15 GRAM TUBE BUCCAL PRN (11:00)
[2016-08-14] MEDS: OXYCODONE/ACETAMINOPHEN (10/325) TAB PO PRN (12:57)
[2016-08-14] MEDS: AMLODIPINE 10 MG TAB PO SCH (12:58)
[2016-08-14] MEDS ORDERED: LIDOCAINE 1% (MDV) 20 ML INJ SC ONE (14:30)
--- NOTE | 2016-08-14 15:08 | HP ---
DATE OF ADMISSION: 08/13/2016 PRIMARY CARE PHYSICIAN: Unknown. PREVIOUS SURGEON: Dr. Isaias Trammell. CHIEF COMPLAINT ON ADMISSION: Postop left ankle infection. HISTORY OF PRESENT ILLNESS: This is a 65-year-old male with history of hypertension, hyperlipidemia, gastroesophageal reflux disease, borderline diabetes, severe osteoarthritis, left ankle status post elective left total ankle replacement last week who has been doing well at home, when on followup with his national sales associate yesterday apparently his soft cast was removed and it was noted that the postop incision site and area seems to be infected. The national sales associate sent the patient to the emergency department for evaluation and possible initiation of IV antibiotics. The patient himself denies any fevers, chills, nausea or vomiting. He does have pain in his left ankle area which he assumed was just part of the postoperative process. He denies any erythema or edema higher up the left lower extremity. He denies any nausea or vomiting. He reports that he does have a glucometer at home and when he checks his blood sugars, they are usually between 120s and 130s. Under the direction of national sales associate of his national sales associate, the patient did come to the ER physician. He was evaluated by Dr. Sheth in the emergency department and it was reported that he has significant erythema, edema and tenderness to palpation around the incision site. Patient's white blood cell count was around 11,000. He was afebrile. He was therefore admitted to a medical/surgical bed, started on Levaquin and vancomycin, both IV. This morning he feels the same. Regarding the area of infection, he reports that it may be improved. There is edema noted around the incision site on the dorsal surface of the left ankle area. There is edema and there are areas of swelling. He reports tenderness to palpation around the incision site in the cayetano. He remains afebrile and white blood cell count has improved today. ALLERGIES: PENICILLIN. PAST MEDICAL HISTORY: 1. Gastroesophageal reflux disease. 2. Hyperlipidemia. 3. Hypertension. 5. Borderline diabetes mellitus from what he is reporting. PAST SURGICAL HISTORY: 1. Status post appendectomy remotely. 2. Status post previous ankle surgery post-trauma 17 years ago. 3. Status post left total ankle replacement on 08/06/2016. SOCIAL HISTORY: The patient denies any alcohol or tobacco use. REVIEW OF SYSTEMS: As per HPI. OUTPATIENT MEDICATIONS: 1. Loratadine 10 mg p.o. daily. 2. Janet 10-20 mg tablets 1 tab p.o. daily. 3. Atorvastatin 40 mg p.o. daily. 4. Clonidine 0.1 mg p.o. q.8 hours p.r.n. elevated blood pressure. 5. Aspirin 81 mg p.o. daily. 6. Meloxicam 15 mg p.o. daily. 7. Oxycodone 10/325 one tab p.o. q.6h. p.r.n. pain. 8. Colace 100 mg p.o. q.12h. 9. Ranitidine 150 mg p.o. daily. PHYSICAL EXAMINATION: VITAL SIGNS: Temperature is 98.3, heart rate of 92, respiratory rate of 18, blood pressure 160/78. The patient is saturating 96% on room air. GENERAL: He is alert and oriented x4. He is in no acute distress, very pleasant gentleman. HEENT: Pupils are equally round and reactive to light. Extraocular muscles are intact. Anicteric sclerae. NECK: No JVD, no thyromegaly noted. HEART: Regular rate and rhythm. No murmur, rubs, or gallops. LUNGS: Clear to auscultation bilaterally. ABDOMEN: Soft, nontender, nondistended. Bowel sounds are present. EXTREMITIES: Right lower extremity, no edema, clubbing or cyanosis. Left lower extremity: Left dorsal surface of his foot and ankle area, right around the incision site with the cayetano intact. The patient does have some edema and swelling around that site, tenderness to palpation around the cayetano. This is covering the dorsal surface of his foot. NEUROLOGIC: Grossly intact. Exam is limited. LABORATORY DATA: White blood cell count is 8.0, hemoglobin 11.6, hematocrit 34.3, platelet count of 286. This is improved from yesterday and the differential on the white blood cell count has normalized. Chemistry with a sodium of 139, potassium 4.1, chloride 101, bicarbonate 26, BUN 12, creatinine 0.72, glucose of 134, calcium 9.0, phosphorus 3.5, magnesium 1.8. INR is 1.14, APTT 31.9, PTT 14.6. RADIOLOGICAL DATA: X-ray of the left ankle showed status post tibiotalar joint arthroplasty with unchanged alignment, interval removal of the overlying cast. Nonspecific subcutaneous lucencies are present. A Doppler of the lower extremity shows no evidence of DVT of the left lower extremity. ASSESSMENT AND PLAN: This is a 65-year-old male with: 1. Postoperative cellulitis of the left foot around the incision site. He is postoperative day #7, and currently has been started on vancomycin and Levaquin and his laboratory data are much better today. The patient reports that there is some improvement of the erythematous area. He remains afebrile. Most likely he is going to vancomycin along with oral Levaquin at the time of discharge, given the fact that he does have borderline diabetes mellitus and he does have instrumentation in this left ankle. 2. Hypertension. Continue home medication. 3. Hyperlipidemia. Continue home medication. 4. Gastroesophageal reflux disease. Continue home medication. 5. Borderline diabetes mellitus. Again, I have counseled the patient regarding the need for possibly medications in the future. He is declining today on a diabetic diet. His blood sugars are actually much better within normal; therefore, I advised for him to stay on that and he is doing his blood sugars at home and claims that they are within range, 120 to 130 at home. 6. Prophylaxis. Lovenox for DVT prophylaxis. Pepcid for GI prophylaxis. DISPOSITION: The patient on IV antibiotics currently. Dr. Trammell, the surgeon , will be seeing the patient today for followup and likely return for PICC line placement by tomorrow as the patient likely will need vancomycin as an outpatient. Dictated By: LANA ALEXIS/DES Conf#: [id number] DID#: [id number] LISA
[2016-08-14 19:35] VITALS: BP 137/67; RESP 18
[2016-08-14] MEDS: LEVOFLOXACIN 750 MG TABLET PO SCH (20:54)
--- NOTE | 2016-08-15 00:34 | CONS ---
Date/Time of Note Date/Time of Note DATE: 08/15/16 TIME: 00:32 Assessment/Plan Assessment/Plan Problems: (1) Cellulitis of left ankle Status: Acute (2) Postop check (3) Hypokalemia Status: Acute (4) Anemia Status: Acute (5) Hyponatremia Status: Acute (6) H/O total ankle replacement Additional Assessment/Plan IV Abx to continue; start PT for gait trainaing with NON weightbearing on his left LE. Patient will be followed in house. Thank you again for involving me in the care of this patient. If you have any questions regarding this case, please feel free to contact me at pager: [phone] or reach me at mobile: [phone]. Consultation Date/Type/Reason Admit Date/Time Aug 13, 2016 at 18:50 Date of Consultation: Aug 14, 2016 Type of Consultation: Foot and ankle surgery Reason for Consultation Left ankle possible infection; s/p left total ankle replacement. Past Surgical History Past Surgical Hx: appendectomy, other Social History Smoking Status: Never smoker Exam/Review of Systems Vital Signs Vitals Vital Signs Date Time Temp Pulse Resp B/P Pulse Ox O2 Delivery O2 Flow Rate FiO2 08/14/16 19:35 98.0 84 18 137/67 96 08/13/16 21:55 Room Air Intake and Output 08/14/16 08/14/16 08/15/16 15:00 23:00 07:00 Intake Total 250 ml 1560 ml Output Total 800 ml Balance 250 ml 760 ml Results Result Diagram: 08/14/16 0524 08/14/16 0524 Results 24 hrs Laboratory Tests Test 08/14/16 05:24 08/14/16 08:37 08/14/16 12:00 08/14/16 17:33 Anion Gap 16 Basophils # 0.1 Basophils % 0.9 Blood Urea Nitrogen 12 Calcium Level 9.0 Carbon Dioxide Level 26 Chloride Level 101 Creatinine 0.72 Eosinophils # 0.2 Eosinophils % 2.7 Glucose Level 134 # Hematocrit 34.3 L Hemoglobin 11.6 L Lymphocytes # 1.9 Lymphocytes % 24.1 Magnesium Level 1.8 Mean Corpuscular Hemoglobin 30.9 Mean Corpuscular Hemoglobin Concent 33.8 Mean Corpuscular Volume 91.2 Mean Platelet Volume 9.2 Monocytes # 0.8 Monocytes % 10.0 Neutrophils # 4.9 Neutrophils % 61.7 Nucleated Red Blood Cells # 0.0 Nucleated Red Blood Cells % 0.0 Phosphorus Level 3.5 Platelet Count 286 Potassium Level 4.1 Red Blood Count 3.76 L Red Cell Distribution Width 12.5 Sodium Level 139 White Blood Count 8.0 # Bedside Glucose 222 H 94 139 Test 08/14/16 20:52 Bedside Glucose 149 Medications Medications Current Medications Levofloxacin (Levaquin) 750 mg Q24H PO Last administered on 08/14/16 20:54; Admin Dose 750 MG; Start 08/14/16 at 20:00 Aspirin (Halfprin) 81 mg DAILY PO Last administered on 08/14/16 08:34; Admin Dose 81 MG; Start 08/14/16 at 09:00 Atorvastatin Calcium (Lipitor) 40 mg DAILY PO Last administered on 08/14/16 08: 34; Admin Dose 40 MG; Start 08/14/16 at 09:00 Clonidine (Catapres) 0.1 mg Q8 PRN PO ELEVATED BLOOD PRESSURE; Start 08/13/16 at 23:30 Loratadine (Claritin) 10 mg DAILY PO Last administered on 08/14/16 08:34; Admin Dose 10 MG; Start 08/14/16 at 09:00 Oxycodone/ Acetaminophen (Endocet (10/ 325)) 1 tab Q6 PRN PO PAIN Last administered on 08/14/16 12:57; Admin Dose 1 TAB; Start 08/13/16 at 23:30 Ondansetron HCl (Zofran Inj) 4 mg Q6H PRN IV NAUSEA AND/OR VOMITING; Start at 23:30 Acetaminophen (Tylenol Tab) 650 mg Q6H PRN PO PAIN LEVEL 1-3 OR FEVER; Start at 23:30 Morphine Sulfate (morphine) 2 mg Q4H PRN IV SEVERE PAIN LEVEL 7-10 Last administered on 08/14/16 20:59; Admin Dose 2 MG; Start 08/13/16 at 23:30 Magnesium Hydroxide (Milk Of Mag) 30 ml DAILY PRN PO CONSTIPATION; Start at 23:30 Bisacodyl (Dulcolax Supp) 10 mg DAILY PRN WI CONSTIPATION; Start 08/13/16 at 23 :30 Famotidine (Pepcid) 20 mg Q12 PO Last administered on 08/14/16 20:54; Admin Dose 20 MG; Start 08/14/16 at 09:00 Enoxaparin Sodium (Lovenox) 40 mg DAILY SC Last administered on 08/14/16 08:38 ; Admin Dose 40 MG; Start 08/14/16 at 09:00 Diagnostic Test (Pha) 1 ea 1 ea 02 XX ; Start 08/14/16 at 02:00 Vancomycin HCl/ Sodium Chloride (Vancocin/NS) 250 ml @ 83.333 mls/ hr Q12H IVPB Last administered on 08/14/16 21:55; Admin Dose 83.333 MLS/HR; Start at 10:00 Influenza Virus Vaccine (Fluzone) 0.5 ml ONCE ONCE IM* ; Start 08/16/16 at 09:00 ; Stop 08/16/16 at 09:01 Losartan Potassium (Cozaar) 50 mg DAILY PO Last administered on 08/14/16 10:07 ; Admin Dose 50 MG; Start 08/14/16 at 10:00 Miscellaneous Information 1 ea NOTE XX ; Start 08/14/16 at 11:00 Glucose (Glutose) 15 gm Q15M PRN PO DECREASED GLUCOSE; Start 08/14/16 at 11:00 Glucose (Glutose) 22.5 gm Q15M PRN PO DECREASED GLUCOSE; Start 08/14/16 at 11:00 Dextrose (D50w Syringe) 25 ml Q15M PRN IV DECREASED GLUCOSE; Start 08/14/16 at 11:00 Dextrose (D50w Syringe) 50 ml Q15M PRN IV DECREASED GLUCOSE; Start 08/14/16 at 11:00 Glucagon (Glucagen) 1 mg Q15M PRN IM DECREASED GLUCOSE; Start 08/14/16 at 11:00 Glucose (Glutose) 15 gm Q15M PRN BUCCAL DECREASED GLUCOSE; Start 08/14/16 at 11: 00 Miscellaneous Information (*Rx Drug Level Order Reminder*) VANCO TROUGH @ 0, 900 ON... ONCE ONCE XX ; Start 08/15/16 at 09:00; Stop 08/15/16 at 09:01 Amlodipine Besylate (Norvasc) 10 mg DAILY PO Last administered on 08/14/16 12: 58; Admin Dose 10 MG; Start 08/14/16 at 12:30 DAVID LIRIANO DPM Aug 15, 2016 00:33
[2016-08-15] MEDS: morphine 2 MG INJ IV PRN (01:17)
[2016-08-15] MEDS: ACCUCHECK XX SCH (02:00)
[2016-08-15 05:06] LABS: ADD SCAN DIFF NO
[2016-08-15 05:13] LABS: BASOPHIL # 0.1 10^3/ul (0.0-0.1); BASOPHILS % 1.2 % (0.0-2.0); EOSINOPHILS # 0.2 10^3/ul (0.0-0.5); EOSINOPHILS % 2.8 % (0.0-7.0); HEMATOCRIT 35.4 % (42.0-52.0); HEMOGLOBIN 11.8 g/dl (14.0-18.0); LYMPHOCYTES # 2.1 10^3/ul (0.8-2.9); LYMPHOCYTES % 27.9 % (15.0-51.0); MEAN CORPUSCULAR HEMOGLOBIN 30.8 pg (29.0-33.0); MEAN CORPUSCULAR HGB CONC 33.3 g/dl (32.0-37.0); MEAN CORPUSCULAR VOLUME 92.4 fl (82.0-101.0); MEAN PLATELET VOLUME 8.9 fl (7.4-10.4); MONOCYTE # 0.7 10^3/ul (0.3-0.9); MONOCYTES % 8.8 % (0.0-11.0); NEUTROPHIL # 4.4 10^3/ul (1.6-7.5); NEUTROPHILS % 58.4 % (39.0-77.0); PLATELET COUNT 306 10^3/UL (140-415); RED BLOOD COUNT 3.83 10^6/ul (4.70-6.10); RED CELL DISTRIBUTION WIDTH 12.5 % (11.5-14.5); WHITE BLOOD COUNT 7.5 10^3/ul (4.8-10.8)
[2016-08-15 05:26] LABS: POTASSIUM 4.6 mmol/L (3.5-5.1)
[2016-08-15 05:28] LABS: CREATININE 0.8 mg/dl (0.61-1.24)
[2016-08-15 05:36] LABS: MAGNESIUM 1.9 mg/dl (1.7-2.5); PHOSPHORUS 3.6 mg/dl (2.5-4.9)
[2016-08-15] MEDS: INSULIN ASPART [NOVOLOG] 3 ML PEN SC SCH ×4 (08:00→20:56)
[2016-08-15 08:06] VITALS: BP 141/80; RESP 20
[2016-08-15] MEDS: ATORVASTATIN 40 MG TAB PO SCH (08:32)
[2016-08-15] MEDS: ASPIRIN (EC) 81 MG TAB PO SCH (08:33)
[2016-08-15] MEDS: LORATADINE 10 MG TAB PO SCH (08:33)
[2016-08-15] MEDS: AMLODIPINE 10 MG TAB PO SCH (08:33)
[2016-08-15] MEDS: ENOXAPARIN 40 MG/0.4 ML SYG SC SCH (08:33)
[2016-08-15] MEDS: LOSARTAN 50 MG TAB PO SCH (08:34)
[2016-08-15] MEDS: FAMOTIDINE 20 MG TAB PO SCH ×2 (08:35→20:31)
[2016-08-15] MEDS: VANCOMYCIN 1.25 GM in SOD CHLORIDE 0.9% 250 ML IVPB SCH (11:14)
--- NOTE | 2016-08-15 12:22 | PN ---
Date/Time of Note Date/Time of Note DATE: 08/15/16 TIME: 11:54 Assessment/Plan VTE Prophylaxis VTE Prophylaxis Intervention: LMWH Lines/Catheters IV Catheter Type (from Nrs): Saline Lock Assessment/Plan Assessment/Plan 65-year-old male: 1. Postoperative cellulitis of the left foot around the incision site. He is postoperative day #8. Improving cellulitic changes Continue vancomycin and Levaquin Labs wnl, afebrile. ID consult for antibitic managemnt, PICC line placement today with planned discharge tomorrow 3 if oK with Podiatry and ID 2. Hypertension. Continue home medication. 3. Hyperlipidemia. Continue home medication. 4. Gastroesophageal reflux disease. Continue home medication. 5. Borderline diabetes mellitus. Again, I have counseled the patient regarding the need for possibly medications in the future, he is declining today . Continue diabetic diet. His blood sugars are actually much better within normal; therefore, I advised for him to stay on that and he is doing his blood sugars at home and claims that they are within range, 120 to 130 at home. Prophylaxis. Lovenox for DVT prophylaxis. Pepcid for GI prophylaxis. DISPOSITION: Continue IV antibiotics, follow up Podiatry and ID recommendations for d/c planning in the next 24 hrs. PICC line placement today as patient likely will need vancomycin IV along with Levaquin po as outpatient. Subjective 24 Hr Interval Summary Free Text/Dictation Patient doing OK Left foot looks much better, less edema and erythema near incision site, intact blood blister near mid incision site, cayetano intact Afebrile, WBC wnl No further complaints this AM Exam/Review of Systems Vital Signs Vitals Vital Signs Date Time Temp Pulse Resp B/P Pulse Ox O2 Delivery O2 Flow Rate FiO2 08/15/16 08:06 98.1 85 20 141/80 96 08/13/16 21:55 Room Air Intake and Output 08/14/16 08/14/16 08/15/16 15:00 23:00 07:00 Intake Total 250 ml 1560 ml 750 ml Output Total 800 ml 2400 ml Balance 250 ml 760 ml -1650 ml Exam Constitutional: alert, oriented, well developed Respiratory: clear to auscultation, normal air movement Cardiovascular: nl pulses, regular rate and rhythm Gastrointestinal: non-tender, soft Musculoskeletal: other (Left dorsal foot s/p ankle repelacement, erythema much improved, small blood blister near mid incision site , cayetano intact ) Extremities: normal pulses, other (no edema, clubbing or cyanosis except changes on Left ankle ) Neurological: REGISTERED REPRESENTATIVE II-XII intact, nl mental status, nl speech, nl strength (non weight bearing LLE ) Results Result Diagram: 08/15/16 0450 08/15/16 0450 Results 24 hrs Laboratory Tests Test 08/14/16 12:00 08/14/16 17:33 08/14/16 20:52 08/15/16 04:50 Bedside Glucose 94 139 149 Anion Gap 17 H Basophils # 0.1 Basophils % 1.2 Blood Urea Nitrogen 12 Calcium Level 9.0 Carbon Dioxide Level 29 Chloride Level 100 Creatinine 0.80 Eosinophils # 0.2 Eosinophils % 2.8 Glucose Level 135 Hematocrit 35.4 L Hemoglobin 11.8 L Lymphocytes # 2.1 Lymphocytes % 27.9 Magnesium Level 1.9 Mean Corpuscular Hemoglobin 30.8 Mean Corpuscular Hemoglobin Concent 33.3 Mean Corpuscular Volume 92.4 Mean Platelet Volume 8.9 Monocytes # 0.7 Monocytes % 8.8 Neutrophils # 4.4 Neutrophils % 58.4 Nucleated Red Blood Cells # 0.0 Nucleated Red Blood Cells % 0.0 Phosphorus Level 3.6 Platelet Count 306 Potassium Level 4.6 Red Blood Count 3.83 L Red Cell Distribution Width 12.5 Sodium Level 141 White Blood Count 7.5 Test 08/15/16 07:58 08/15/16 08:54 08/15/16 11:20 Bedside Glucose 112 149 Vancomycin Level Trough 7.4 L Medications Medications Current Medications Levofloxacin (Levaquin) 750 mg Q24H PO Last administered on 08/14/16 20:54; Admin Dose 750 MG; Start 08/14/16 at 20:00 Aspirin (Halfprin) 81 mg DAILY PO Last administered on 08/15/16 08:33; Admin Dose 81 MG; Start 08/14/16 at 09:00 Atorvastatin Calcium (Lipitor) 40 mg DAILY PO Last administered on 08/15/16 08: 32; Admin Dose 40 MG; Start 08/14/16 at 09:00 Clonidine (Catapres) 0.1 mg Q8 PRN PO ELEVATED BLOOD PRESSURE; Start 08/13/16 at 23:30 Loratadine (Claritin) 10 mg DAILY PO Last administered on 08/15/16 08:33; Admin Dose 10 MG; Start 08/14/16 at 09:00 Oxycodone/ Acetaminophen (Endocet (10/ 325)) 1 tab Q6 PRN PO PAIN Last administered on 08/14/16 12:57; Admin Dose 1 TAB; Start 08/13/16 at 23:30 Ondansetron HCl (Zofran Inj) 4 mg Q6H PRN IV NAUSEA AND/OR VOMITING; Start at 23:30 Acetaminophen (Tylenol Tab) 650 mg Q6H PRN PO PAIN LEVEL 1-3 OR FEVER; Start at 23:30 Morphine Sulfate (morphine) 2 mg Q4H PRN IV SEVERE PAIN LEVEL 7-10 Last administered on 08/15/16 01:17; Admin Dose 2 MG; Start 08/13/16 at 23:30 Magnesium Hydroxide (Milk Of Mag) 30 ml DAILY PRN PO CONSTIPATION; Start at 23:30 Bisacodyl (Dulcolax Supp) 10 mg DAILY PRN [place] CONSTIPATION; Start 08/13/16 at 23 :30 Famotidine (Pepcid) 20 mg Q12 PO Last administered on 08/15/16 08:35; Admin Dose 20 MG; Start 08/14/16 at 09:00 Enoxaparin Sodium (Lovenox) 40 mg DAILY SC Last administered on 08/15/16 08:33 ; Admin Dose 40 MG; Start 08/14/16 at 09:00 Diagnostic Test (Pha) 1 ea 1 ea 02 XX ; Start 08/14/16 at 02:00 Vancomycin HCl/ Sodium Chloride (Vancocin/NS) 250 ml @ 83.333 mls/ hr Q12H IVPB Last administered on 08/15/16 11:14; Admin Dose 83.333 MLS/HR; Start at 10:00; Stop 08/15/16 at 13:30 Influenza Virus Vaccine (Fluzone) 0.5 ml ONCE ONCE IM* ; Start 08/16/16 at 09:00 ; Stop 08/16/16 at 09:01 Losartan Potassium (Cozaar) 50 mg DAILY PO Last administered on 08/15/16 08:34 ; Admin Dose 50 MG; Start 08/14/16 at 10:00 Miscellaneous Information 1 ea NOTE XX ; Start 08/14/16 at 11:00 Glucose (Glutose) 15 gm Q15M PRN PO DECREASED GLUCOSE; Start 08/14/16 at 11:00 Glucose (Glutose) 22.5 gm Q15M PRN PO DECREASED GLUCOSE; Start 08/14/16 at 11:00 Dextrose (D50w Syringe) 25 ml Q15M PRN IV DECREASED GLUCOSE; Start 08/14/16 at 11:00 Dextrose (D50w Syringe) 50 ml Q15M PRN IV DECREASED GLUCOSE; Start 08/14/16 at 11:00 Glucagon (Glucagen) 1 mg Q15M PRN IM DECREASED GLUCOSE; Start 08/14/16 at 11:00 Glucose (Glutose) 15 gm Q15M PRN BUCCAL DECREASED GLUCOSE; Start 08/14/16 at 11: 00 Amlodipine Besylate 10 mg 10 mg DAILY PO Last administered on 08/15/16t 08:33; Admin Dose 10 MG; Start 08/14/16 at 12:30 Vancomycin HCl/ Sodium Chloride (Vancocin/NS) 500 ml @ 125 mls/hr Q12H IVPB ; Start 08/15/16 at 22:00 LANA WARREN Aug 15, 2016 12:11
--- NOTE | 2016-08-15 13:13 | RADRPT ---
PROCEDURE: US guidance for PICC line CLINICAL INDICATION: PICC line placement TECHNIQUE: Multiple real-time images were acquired of the patient's arm utilizing a high resolutio n transducer. This was performed by the PICC line nurse for venous access. COMPARISON: None FINDINGS: Ultrasound guidance for PICC line placement. IMPRESSION: Ultrasound guidance for PICC line placement. RPTAT: AA .Raymond Cook MD, MD Date Time Electronically viewed and signed by .Raymond Cook MD, on 08/15/2016 13:13 .S/
--- NOTE | 2016-08-15 13:38 | CONS ---
DATE OF ADMISSION: 08/13/2016 DATE OF CONSULTATION: 08/15/2016 TYPE OF CONSULTATION: Infectious Disease. REASON FOR CONSULTATION: Antibiotic management. HISTORY OF PRESENT ILLNESS: Chris Franco is a 65-year-old male who was admitted with postop left a nkle infection. His past problems include: 1. Hypertension. 2. Hyperlipidemia. 3. GERD. 4. Borderline diabetes. 5. Osteoarthritis. 6. Status post elective left total ankle replacement last week. The patient was doing well at home, but on followup, his cast was removed, and it was noted that he had a postop incision site that seemed infected. He was sent to the emergency room for IV antibioti cs. He had significant erythema, edema, tenderness. The patient had a white count 11,000. He was placed on vancomycin and Levaquin. OPERATIONS: 1. Status post appendectomy. 2. Status post previous ankle surgery post trauma 17 years ago. 3. Status post left ankle replacement on 08/06/2016. PAST MEDICAL HISTORY: Operations as outlined. FAMILY HISTORY: Noncontributory. SOCIAL HISTORY: He does not smoke, drink or abuse drugs. ALLERGIES: PENICILLIN. MEDICATIONS: Per chart. REVIEW OF SYSTEMS: As per HPI. PHYSICAL EXAMINATION: GENERAL: The patient is a well-developed, well-nourished male who is alert, responsive. No acute d istress. VITAL SIGNS: Stable. He is afebrile. SKIN: Without generalized rash. HEENT: Within normal limits. NECK: Supple. LYMPH NODES: None palpable. CHEST: Decreased breath sounds at the bases. HEART: Without murmur or gallop. ABDOMEN: Soft, nontender without organosplenomegaly or masses. LEFT LOWER EXTREMITY: Dorsal surface of the foot and ankle right around the incision site has some erythema and edema and tenderness. His white count on admission was 8000, H and H of 11.6 and 33.4, platelet count of 286,000. BUN and creatinine 12 over 0.72. X-ray of the ankle showed status post tibiotalar joint arthroplasty with unchanged alignment, interv al removal of the overlying cast. Past nonspecific subcutaneous lucencies are present. No evidence of DVT. IMPRESSION: Postoperative cellulitis, day #7. He was on vancomycin and Levaquin. Blood cultures a re negative. Urine MRSA negative. The patient is on vancomycin and Levaquin. He was seen by Dr. Daljit Trammell, who noted cellulitis of left ankle, continue antibiotic therapy. Seen by Dr. Jean. Co ntinue vancomycin and Levaquin, place a PICC line. The patient will be discharged. I would concur with that, be sent home on at least 2 weeks, probably 4 weeks of IV antibiotics. I will dictate my findings to Dr. Jean and to Dr. Trammell. Dictated By: ANA ANNE MD, JD/DES Conf#: [id number] DID#: [id number]
--- NOTE | 2016-08-15 14:20 | RADRPT ---
PROCEDURE: XR Chest. CLINICAL INDICATION: PICC line placement TECHNIQUE: Single frontal chest x-ray. COMPARISON: Chest x-ray dated 08/15/2016 at 1:02 p.m. FINDINGS: Left-sided PICC line is seen with the tip in the superior vena cava, in good location. There is no evidence for pneumothorax. Otherwise, the examination is stable. Minimal basilar atelectasis is pr esent. IMPRESSION: 1. Left-sided PICC line in good position without pneumothorax. RPTAT: HMJB .Nader Kiran MD, MD Date Time Electronically viewed and signed by .Nader Kiran MD, on 08/15/2016 14:20 .B/
--- NOTE | 2016-08-15 14:21 | RADRPT ---
PROCEDURE: XR Chest. CLINICAL INDICATION: PICC line placement TECHNIQUE: Single frontal chest x-ray. COMPARISON: None. FINDINGS: The lungs are clear. No focal opacification is seen. The cardiomediastinal silhouette is unremarka ble. The osseous structures are remarkable for minimal degenerative spondylosis of the lower thorac ic spine. Left-sided PICC line is seen with the tip in the superior vena cava, in good position. T here is no evidence for pneumothorax. IMPRESSION: 1. Left-sided PICC line in good position within the SVC without evidence for pneumothorax. RPTAT: HMJB .Nader Kiran MD, MD Date Time Electronically viewed and signed by .Nader Kiran MD, MD on 08/15/2016 14:21 .B/
[2016-08-15] MEDS: OXYCODONE/ACETAMINOPHEN (10/325) TAB PO PRN ×2 (15:44→23:37)
[2016-08-15] MEDS ORDERED: SOD CHLORIDE 0.9% 100 ML ONE (17:58)
[2016-08-15 19:25] VITALS: BP 120/59; RESP 20
[2016-08-15] MEDS: LEVOFLOXACIN 750 MG TABLET PO SCH (20:32)
[2016-08-15] MEDS: VANCOMYCIN 1.75 GM in NS 500 ML IVPB SCH (21:31)
[2016-08-16] MEDS: ACCUCHECK XX SCH (02:00)
[2016-08-16 05:58] LABS: ADD SCAN DIFF NO
[2016-08-16 06:01] LABS: BASOPHIL # 0.1 10^3/ul (0.0-0.1); EOSINOPHILS # 0.3 10^3/ul (0.0-0.5); EOSINOPHILS % 3.6 % (0.0-7.0); HEMATOCRIT 34.7 % (42.0-52.0); HEMOGLOBIN 11.7 g/dl (14.0-18.0); LYMPHOCYTES # 2.2 10^3/ul (0.8-2.9); MEAN CORPUSCULAR HGB CONC 33.7 g/dl (32.0-37.0); MEAN CORPUSCULAR VOLUME 91.8 fl (82.0-101.0); MEAN PLATELET VOLUME 8.7 fl (7.4-10.4); MONOCYTE # 0.6 10^3/ul (0.3-0.9); MONOCYTES % 9.1 % (0.0-11.0); NEUTROPHIL # 3.9 10^3/ul (1.6-7.5); NEUTROPHILS % 54.7 % (39.0-77.0); PLATELET COUNT 320 10^3/UL (140-415); RED BLOOD COUNT 3.78 10^6/ul (4.70-6.10); RED CELL DISTRIBUTION WIDTH 12.5 % (11.5-14.5)
[2016-08-16 06:48] LABS: POTASSIUM 4.1 mmol/L (3.5-5.1)
[2016-08-16 06:50] LABS: MAGNESIUM 1.9 mg/dl (1.7-2.5); PHOSPHORUS 3.9 mg/dl (2.5-4.9)
[2016-08-16 06:51] LABS: CREATININE 0.84 mg/dl (0.61-1.24)
[2016-08-16 07:30] VITALS: BP 135/76; RESP 20
[2016-08-16] MEDS: INSULIN ASPART [NOVOLOG] 3 ML PEN SC SCH ×3 (08:00→17:33)
[2016-08-16 08:34] VITALS: BP 130/71; PULSE 92
[2016-08-16] MEDS: FAMOTIDINE 20 MG TAB PO SCH (08:36)
[2016-08-16] MEDS: ASPIRIN (EC) 81 MG TAB PO SCH (08:36)
[2016-08-16] MEDS: AMLODIPINE 10 MG TAB PO SCH (08:36)
[2016-08-16] MEDS: LORATADINE 10 MG TAB PO SCH (08:36)
[2016-08-16] MEDS: ATORVASTATIN 40 MG TAB PO SCH (08:37)
[2016-08-16] MEDS: LOSARTAN 50 MG TAB PO SCH (08:38)
[2016-08-16] MEDS: ENOXAPARIN 40 MG/0.4 ML SYG SC SCH (08:39)
[2016-08-16] MEDS ORDERED: INFLUENZA VIRUS VACCINE 0.5 ML (DISPENSING) IM* ONE (09:00)
[2016-08-16] MEDS: VANCOMYCIN 1.75 GM in NS 500 ML IVPB SCH ×2 (09:30→15:50)
[2016-08-16] MEDS: morphine 2 MG INJ IV PRN ×2 (10:24→15:20)
--- NOTE | 2016-08-16 11:56 | PN ---
DATE: 08/16/2016 SUBJECTIVE: No acute events overnight. The patient is alert, lying comfortably in bed. No fevers. Vital signs stable. He has a PICC line. ANTIMICROBIALS: He is on: 1. Vancomycin. 2. Levaquin. LABORATORY DATA: WBC today 7, no shift, no bands. BUN 16, creatinine 0.84. MICROBIOLOGY: All cultures have been negative. PHYSICAL EXAMINATION: GENERAL: Well-developed elderly man who is alert, in no distress. HEENT: Head atraumatic, normocephalic. Sclerae anicteric. Buccal mucosa dry. NECK: Supple. CHEST: Rise symmetrical. Breath sounds clear. HEART: S1, S2. ABDOMEN: Soft, bowel sounds present. EXTREMITIES: Left lower extremity incision intact with surrounding erythema. ASSESSMENT: 1. 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 2. Diabetes. 3. 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 4. Peripheral neuropathy. 5. Hypertension. PLAN: The patient remains stable, covered with broad-spectrum antibiotics. He is postop day #8. W e will keep him on antibiotics for 2 to 4 weeks based on response. The patient has PICC line, pendi ng discharge planning. The patient to follow with podiatry as an outpatient for further recommendat ions. Dictated By: KARLA ZHAO SUPERVISOR [employer] for ANA DOSS/DES Conf#: [id number] DID#: [id number]
--- NOTE | 2016-08-16 13:51 | PN ---
Date/Time of Note Date/Time of Note DATE: 08/16/16 TIME: 13:43 Assessment/Plan VTE Prophylaxis VTE Prophylaxis Intervention: LMWH Lines/Catheters [facility] PICC Line Assessment/Plan Assessment/Plan 65-year-old male: 1. Postoperative cellulitis of the left foot around the incision site. He is postoperative day #9. Improving cellulitic changes Continue vancomycin and Levaquin x 2 to 4 weeks. Labs wnl, afebrile. Appreciate ID recs and will d/c home today with HH for IV abx x 14 days with follow up with ID outpatient to prolong abx rx to 4 weeks if needed PICC line in place F/u with Dr Trammell next week. 2. Hypertension. Continue home medication. 3. Hyperlipidemia. Continue home medication. 4. Gastroesophageal reflux disease. Continue home medication. 5. Borderline diabetes mellitus. Again, I have counseled the patient regarding the need for possibly medications in the future, he is declining today . Continue diabetic diet. His blood sugars are actually much better within normal; therefore, I advised for him to stay on that and he is doing his blood sugars at home and claims that they are within range, 120 to 130 at home. Prophylaxis. Lovenox for DVT prophylaxis. Pepcid for GI prophylaxis. DISPOSITION: Continue IV antibiotics as outpatient Follow up with Podiatry and ID outpatient within 1 to 2 weeks Subjective 24 Hr Interval Summary Free Text/Dictation Patient doing well today and post op cellulitis improving Appreciate ID consult and recommendations, d/c home with HH RN for IV abx and PICC line care Exam/Review of Systems Vital Signs Vitals Vital Signs Date Time Temp Pulse Resp B/P Pulse Ox O2 Delivery O2 Flow Rate FiO2 08/16/16 08:34 92 130/71 08/16/16 07:30 98.6 20 96 08/13/16 21:55 Room Air Intake and Output 08/15/16 08/15/16 08/16/16 15:00 23:00 07:00 Intake Total 250 ml 1200 ml 1250 ml Output Total 1400 ml 600 ml Balance 250 ml -200 ml 650 ml Exam Constitutional: alert, oriented, well developed Respiratory: clear to auscultation, normal air movement Cardiovascular: nl pulses, regular rate and rhythm Gastrointestinal: non-tender, soft Musculoskeletal: nl extremities to inspection Extremities: normal pulses, other (no edema, clubbing or cyanosis ) Neurological: REPAIRING CALIBRATOR II-XII intact, nl mental status, nl speech, nl strength, other (NWB LLE ) Results Result Diagram: 08/16/16 0538 08/16/16 0538 Results 24 hrs Laboratory Tests Test 08/15/16 17:32 08/15/16 20:35 08/16/16 05:38 08/16/16 08:18 Bedside Glucose 105 113 126 Anion Gap 15 Basophils # 0.1 Basophils % 1.0 Blood Urea Nitrogen 16 Calcium Level 9.0 Carbon Dioxide Level 26 Chloride Level 103 Creatinine 0.84 Eosinophils # 0.3 Eosinophils % 3.6 Glucose Level 137 Hematocrit 34.7 L Hemoglobin 11.7 L Lymphocytes # 2.2 Lymphocytes % 31.0 Magnesium Level 1.9 Mean Corpuscular Hemoglobin 31.0 Mean Corpuscular Hemoglobin Concent 33.7 Mean Corpuscular Volume 91.8 Mean Platelet Volume 8.7 Monocytes # 0.6 Monocytes % 9.1 Neutrophils # 3.9 Neutrophils % 54.7 Nucleated Red Blood Cells # 0.0 Nucleated Red Blood Cells % 0.0 Phosphorus Level 3.9 Platelet Count 320 Potassium Level 4.1 Red Blood Count 3.78 L Red Cell Distribution Width 12.5 Sodium Level 140 White Blood Count 7.0 Test 08/16/16 11:54 Bedside Glucose 97 Medications Medications Current Medications Levofloxacin (Levaquin) 750 mg Q24H PO Last administered on 08/15/16 20:32; Admin Dose 750 MG; Start 08/14/16 at 20:00 Aspirin (Halfprin) 81 mg DAILY PO Last administered on 08/16/16 08:36; Admin Dose 81 MG; Start 08/14/16 at 09:00 Atorvastatin Calcium (Lipitor) 40 mg DAILY PO Last administered on 08/16/16 08: 37; Admin Dose 40 MG; Start 08/14/16 at 09:00 Clonidine (Catapres) 0.1 mg Q8 PRN PO ELEVATED BLOOD PRESSURE; Start 08/13/16 at 23:30 Loratadine (Claritin) 10 mg DAILY PO Last administered on 08/16/16 08:36; Admin Dose 10 MG; Start 08/14/16 at 09:00 Oxycodone/ Acetaminophen (Endocet (10/ 325)) 1 tab Q6 PRN PO PAIN Last administered on 08/15/16 23:37; Admin Dose 1 TAB; Start 08/13/16 at 23:30 Ondansetron HCl (Zofran Inj) 4 mg Q6H PRN IV NAUSEA AND/OR VOMITING; Start at 23:30 Acetaminophen (Tylenol Tab) 650 mg Q6H PRN PO PAIN LEVEL 1-3 OR FEVER; Start at 23:30 Morphine Sulfate (morphine) 2 mg Q4H PRN IV SEVERE PAIN LEVEL 7-10 Last administered on 08/16/16 10:24; Admin Dose 2 MG; Start 08/13/16 at 23:30 Magnesium Hydroxide (Milk Of Mag) 30 ml DAILY PRN PO CONSTIPATION; Start at 23:30 Bisacodyl (Dulcolax Supp) 10 mg DAILY PRN [place] CONSTIPATION; Start 08/13/16 at 23 :30 Famotidine (Pepcid) 20 mg Q12 PO Last administered on 08/16/16 08:36; Admin Dose 20 MG; Start 08/14/16 at 09:00 Enoxaparin Sodium (Lovenox) 40 mg DAILY SC Last administered on 08/16/16 08:39 ; Admin Dose 40 MG; Start 08/14/16 at 09:00 Diagnostic Test (Pha) (Accucheck) 1 ea 02 XX ; Start 08/14/16 at 02:00 Losartan Potassium (Cozaar) 50 mg DAILY PO Last administered on 08/16/16 08:38 ; Admin Dose 50 MG; Start 08/14/16 at 10:00 Miscellaneous Information 1 ea NOTE XX ; Start 08/14/16 at 11:00 Glucose (Glutose) 15 gm Q15M PRN PO DECREASED GLUCOSE; Start 08/14/16 at 11:00 Glucose (Glutose) 22.5 gm Q15M PRN PO DECREASED GLUCOSE; Start 08/14/16 at 11:00 Dextrose (D50w Syringe) 25 ml Q15M PRN IV DECREASED GLUCOSE; Start 08/14/16 at 11:00 Dextrose (D50w Syringe) 50 ml Q15M PRN IV DECREASED GLUCOSE; Start 08/14/16 at 11:00 Glucagon (Glucagen) 1 mg Q15M PRN IM DECREASED GLUCOSE; Start 08/14/16 at 11:00 Glucose (Glutose) 15 gm Q15M PRN BUCCAL DECREASED GLUCOSE; Start 08/14/16 at 11: 00 Amlodipine Besylate 10 mg 10 mg DAILY PO Last administered on 08/16/16 08:36; Admin Dose 10 MG; Start 08/14/16 at 12:30 Vancomycin HCl/ Sodium Chloride (Vancocin/NS) 500 ml @ 125 mls/hr Q12H IVPB Last administered on 08/16/16 09:30; Admin Dose 125 MLS/HR; Start 08/15/16 at 22: 00 IV Flush (NS 10 ml) 10 ml PRN PRN IV IV PROTOCOL; Start 08/15/16 at 14:00 Miscellaneous Information (*Rx Drug Level Order Reminder*) VANCO TROUGH @ 0, 900 ON... ONCE ONCE XX ; Start 08/17/16 at 09:00; Stop 08/17/16 at 09:01 LANA WARREN Aug 16, 2016 13:51
--- NOTE | 2016-08-16 13:54 | PDOCDIS ---
Discharge Instructions CONDITION Patient Condition: Stable HOME CARE INSTRUCTIONS: Special Diet: low fat, low cholesterol ACTIVITY: Activity Restrictions: No Weight Bearing (LLE) FOLLOW UP/APPOINTMENTS Appointments Follow up with PCP within 1 week Follow up with Podiatry, Dr Trammell within 1 week Follow up with Infectious disease within 1 to 2 week for re-evaluation and extension of length of treatment for abx LANA WARREN Aug 16, 2016 13:54
[2016-08-16] MEDS ORDERED: [UNRECOGNIZED DRUG - CODE] IV (14:39)
[2016-08-16] MEDS ORDERED: LEVO750T25 PO (14:39)
[2016-08-16] MEDS ORDERED: LACT1CAP57 PO (14:40)
[2016-08-16] MEDS ORDERED: LACTOBACILLUS RHAMNOSUS CAP PO SCH (15:00)
[2016-08-16] MEDS: LEVOFLOXACIN 750 MG TABLET PO SCH (19:53)
[2016-08-16 19:58] VITALS: BP 132/70; PULSE 90; RESP 72
--- NOTE | 2016-08-17 13:44 | DS ---
DATE OF ADMISSION: 08/13/2016 DATE OF DISCHARGE: 08/16/2016 CONSULTANTS DURING THIS ADMISSION: Dr. Trammell from podiatry and Dr. Nielsen from infectious disease. ADMITTING PHYSICIAN: Dr. Jean. DISCHARGING PHYSICIAN: Dr. Jean. CHIEF COMPLAINT ON ADMISSION: Postop left ankle infection. BRIEF HISTORY OF PRESENT ILLNESS: This is a 65-year-old male with history of hypertension, hyperlip idemia, gastroesophageal reflux disease, borderline diabetes mellitus, severe osteoarthritis, status post left ankle total replacement 1 week prior to this admission, who while following up with his [facility] physician and when the cast was removed, he was noted to have significant erythema and c ellulitic changes around the incision site postoperatively. [facility] HOSPITAL COURSE: The patient was seen in the emergency department. There was concern for postopera tive infection and the fact that the patient has hardware; therefore aggressive treatment was indica sandy. He was started on Levaquin and vancomycin due to his PENICILLIN ALLERGY. Blood cultures were taken. They remained negative. He has been admitted to a medical/surgical bed. He was monitored f or 3 days on the medical floor. He was seen by Dr. Trammell. His cellulitic changes are much improve d. He was also seen by Dr. Nielsen from infectious disease who recommended and agreed with discharge on Levaquin and vancomycin for 2 to 4 weeks. PICC line was placed and the patient was discharged after his second dose of vancomycin was given on 08/16/2016 with followup with outpatient home health for IV vancomycin for 14 more days. He was al so given a prescription for Levaquin for 14 days. DISPOSITION: Discharge home with home health for IV antibiotics. DISCHARGE CONDITION: Stable. DISCHARGE DIET: Diabetic diet. DISCHARGE ACTIVITY: Nonweightbearing to the left lower extremity. FOLLOWUP: 1. The patient is to follow up with Dr. Trammell in 1 week. 2. Follow up with primary care physician within 1 week. 3. Follow up with infectious disease within 1 to 2 weeks for reevaluation regarding length of treat ment. DISCHARGE DIAGNOSES: 1. Postoperative cellulitis of the left foot around incision site, status post left total replaceme nt of the ankle. 2. Hypertension. 3. Hyperlipidemia. 4. Gastroesophageal reflux disease. 5. Borderline diabetes mellitus. DISCHARGE MEDICATIONS: 1. Culturelle 1 cap p.o. b.i.d. 2. Levaquin 750 mg p.o. q.24h. for 14 days. 3. Vancomycin 1.75 grams IV q.12h. for 14 days with further dosing per pharmacy based on levels. 4. Amlodipine/olmesartan 10/20, one tab p.o. daily. 5. Aspirin 81 mg daily. 6. Atorvastatin 40 mg p.o. daily. 7. Clonidine 0.1 mg p.o. q. 8 hours as needed for elevated blood pressure. 8. Colace 100 mg p.o. q.12h. 9. Loratadine 10 mg p.o. daily. 10. Meloxicam 15 mg p.o. daily. 11. Percocet 5/325 one tab p.o. q.6h. p.r.n. pain. 12. Ranitidine 150 mg p.o. daily. Dictated By: LANA ALEXIS/DES Conf#: [id number] DID#: [id number]
== END 2016-08-16 20:56 | disposition home health service (06) | DRG 603 ==
LOC: E/R 14:36 → PP2 18:50
PROVIDERS: ADMIT Internal Medicine; ATTEND Internal Medicine
PROC: 02HV33Z Insertion of Infusion Device into Superior Vena Cava, Percutaneous Approach (ICD-10-PCS; principal; 2016-08-15)
DX: L03.116 Cellulitis of left lower limb (principal); E87.1 Hypo-osmolality and hyponatremia; I10 Essential (primary) hypertension; E87.6 Hypokalemia; D64.9 Anemia, unspecified; E78.5 Hyperlipidemia, unspecified; K21.9 Gastro-esophageal reflux disease without esophagitis; R73.03 Prediabetes; G62.9 Polyneuropathy, unspecified; Z96.662 Presence of left artificial ankle joint; Z88.0 Allergy status to penicillin
CPT/HCPCS: 36415; 36569; 71010; 73610; 76937; 80048; 80202; 82962; 83735; 84100; 85025; 85610; 85730; 87040; 87081; 90686; 93971; 96374; J1650; J1815; J1956; J2270; J3370; J3480; J7040; J7050